=== PATIENT | male | born 1980 | race Caucasian/White ===

== ENCOUNTER 2021-05-28 17:48 | Emergency (ER) | payer OTHER ==
[2021-05-28] MEDS ORDERED: Proparacaine 0.5% Ophth Soln 15 ML Bottle EYELF ONE (18:47)
[2021-05-28] MEDS ORDERED: Fluorescein 1 MG Ophth Strip EYELF ONE (18:48)
--- NOTE | 2021-05-28 19:12 | EDM.PDOC ---
ED HPI GENERAL MEDICAL PROBLEM - General Chief Complaint: Eye Problems Stated Complaint: FB LEFT EYE Time Seen by Provider: 05/28/21 18:46 Source of Information: Reports: Patient History Limitations: Reports: No Limitations - History of Present Illness INITIAL COMMENTS - FREE TEXT/NARRATIVE: The patient presents with a FB in his left eye. He was at work and washing up and something went into his left eye. He can see it but he cannot get it out. He does not wear contacts and he does not wear glasses. He has no blurry vision. Onset: Sudden Duration: Minutes: Location: Reports: Other (left eye) Quality: Reports: Ache Severity: Mild Improves with: Reports: None Worsens with: Reports: None Associated Symptoms: Reports: No Other Symptoms Left Eye Pain Score (Numeric/FACES): 3 - Related Data Allergies Allergy/AdvReac Type Severity Reaction Status Date / Time No Known Allergies Allergy Verified 05/28/21 18:00 Home Meds: Home Meds Ciprofloxacin [Ciloxan 0.3% Ophth Soln] 1 drop EYELF Q4H #10 ml 05/28/21 [Rx] Past Medical History - Past Surgical History Musculoskeletal Surgical History: Reports: Other (See Below) Other Musculoskeletal Surgeries/Procedures:: back surgery Social & Family History - Tobacco Use Tobacco Use Status *Q: Current Some Day Tobacco User Years of Tobacco use: 10 Packs/Tins Daily: 0.1 - Recreational Drug Use Recreational Drug Use: No ED ROS GENERAL - Review of Systems Review Of Systems: See Below Constitutional: Reports: No Symptoms HEENT: Reports: Other (FB left eye) Respiratory: Reports: No Symptoms Cardiovascular: Reports: No Symptoms Endocrine: Reports: No Symptoms GI/Abdominal: Reports: No Symptoms : Reports: No Symptoms ED EXAM GENERAL W FULL EYE - Physical Exam Exam: See Below Exam Limited By: No Limitations General Appearance: Alert, No Apparent Distress Eye Exam: Bilateral Eye: EOMI, PERRL Eyelids: Left: Lid Everted for Exam, Bilateral: Normal Appearance Cornea Exam: Left: Foreign Body Extraocular Movements: Bilateral: Intact Respiratory/Chest: No Respiratory Distress ED EYE w/ Add Procedure - Eye Procedure Alcaine Drops Administered: Yes (Proparacaine) Eye FB Removal: Other (Eye spud) Eye Irrigated w/ Saline (ccs): 5 Course - Vital Signs Last Recorded V/S: Last Vital Signs Temp 97.8 F 05/28/21 17:58 Pulse 62 05/28/21 17:58 Resp 16 05/28/21 17:58 BP 125/84 05/28/21 17:58 Pulse Ox 96 05/28/21 17:58 - Orders/Labs/Meds Meds: Medications Discontinued Medications Generic Name Dose Route Start Last Admin Trade Name Sarita PRN Reason Stop Dose Admin Fluorescein Sodium 1 mg 05/28/21 18:48 05/28/21 18:55 Fluorescein 1 Mg Ophth Strip EYELF 05/28/21 18:49 1 mg ONETIME ONE Administration Proparacaine HCl 1 ml 05/28/21 18:47 05/28/21 18:55 Proparacaine 0.5% Ophth Soln 15 Ml Bottle EYELF 05/28/21 18:48 3 drop ONETIME ONE Administration - Re-Assessments/Exams Free Text/Narrative Re-Assessment/Exam: 05/28/21 19:09 I put some proparacaine in his left eye and I removed the FB with an eye spud. There is a slight rust ring. I do not feel that needs to be ground down. I will get him on some cipro drops. Departure - Departure Time of Disposition: 19:10 Disposition: Home, Self-Care 01 Condition: Good Clinical Impression: Corneal FB (foreign body) Qualifiers: Encounter type: initial encounter Laterality: left Qualified Code(s): T15.02XA - Foreign body in cornea, left eye, initial encounter - Discharge Information *PRESCRIPTION DRUG MONITORING PROGRAM REVIEWED*: Not Applicable *COPY OF PRESCRIPTION DRUG MONITORING REPORT IN PATIENT WANDA: Not Applicable Prescriptions: Ciprofloxacin [Ciloxan 0.3% Ophth Soln] 1 drop EYELF Q4H #10 ml Referrals: PCP,None [Primary Care Provider] - Additional Instructions: Use the cipro drops 1 drop in the left eye every 4 hours while awake for 1 week. Take tylenol or motrin as needed for pain. Follow up with an chemical applicator in town if you have any more issues. Please return if you are worse. Sepsis Event Note (ED) - Evaluation Sepsis Screening Result: No Definite Risk - Focused Exam Vital Signs: Vital Signs Temp Pulse Resp BP Pulse Ox 05/28/21 17:58 97.8 F 62 16 125/84 96
== END 2021-05-28 19:25 | disposition home or self-care (01) ==
LOC: JD.ED 17:48
DX: T15.02XA Foreign body in cornea, left eye, initial encounter (principal); Z72.0 Tobacco use
CPT/HCPCS: 65205; 65220; 99283; 99283-25

== ENCOUNTER 2021-05-29 09:15 | Emergency (ER) | payer OTHER ==
[2021-05-29] MEDS ORDERED: Diphtheria,Pertussis(Acell),Tetanus Vaccine 0.5 ML Syringe IM ONE (09:59)
[2021-05-29] MEDS ORDERED: Proparacaine 0.5% Ophth Soln 15 ML Bottle EYERT SCH (10:00)
[2021-05-29] MEDS ORDERED: Fluorescein 1 MG Ophth Strip EYERT ONE (10:23)
--- NOTE | 2021-05-29 10:26 | EDM.PDOC ---
ED HPI GENERAL MEDICAL PROBLEM - General Chief Complaint: ENT Problem Stated Complaint: FB IN LEFT EYE Time Seen by Provider: 05/29/21 10:15 - History of Present Illness INITIAL COMMENTS - FREE TEXT/NARRATIVE: 40-year-old male presents the emergency room for removal of rust ring and to have his tetanus booster. Patient was seen last evening had a foreign body that was metallic removed from his left eye. Apparently the [place] and [place] provider was insistent that the patient come back for rust ring removal and to have his tetanus updated. Patient is doing okay at this time no apparent visual problems. He was started on Cipro eyedrops. 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 PROJECT COACH: cipro drops evry 4 hours Right Eye Pain Score (Numeric/FACES): 5 - Related Data Allergies Allergy/AdvReac Type Severity Reaction Status Date / Time No Known Allergies Allergy Verified 05/28/21 18:00 Home Meds: Home Meds Ciprofloxacin [Ciloxan 0.3% Ophth Soln] 1 drop EYELF Q4H #10 ml 05/28/21 [Rx] Acetaminophen/HYDROcodone [[place] 325-5 MG] 1 - 2 tab PO Q6H PRN #10 tab 05/29/21 [Rx] Hydrocodone/Acetaminophen [Hydrocodone-Acetamin 5-325 mg] 1 - 2 tab PO Q6H PRN #10 tablet 05/29/21 [Rx] Past Medical History Cardiovascular History: Reports: None Respiratory History: Reports: None Gastrointestinal History: Reports: None Genitourinary History: Reports: None Musculoskeletal History: Reports: Back Pain, Chronic Neurological History: Reports: None Psychiatric History: Reports: None Endocrine/Metabolic History: Reports: None Hematologic History: Reports: None Immunologic History: Reports: None Oncologic (Cancer) History: Reports: None Dermatologic History: Reports: None - Infectious Disease History Infectious Disease History: Reports: Chicken Pox - Past Surgical History Head Surgeries/Procedures: Reports: None HEENT Surgical History: Reports: Other (See Below) Other HEENT Surgeries/Procedures: abrasion and welding burn to eyes Cardiovascular Surgical History: Reports: None Respiratory Surgical History: Reports: None GI Surgical History: Reports: None Musculoskeletal Surgical History: Reports: Other (See Below) Other Musculoskeletal Surgeries/Procedures:: back surgery Social & Family History - Family History Family Medical History: No Pertinent Family History - Tobacco Use Tobacco Use Status *Q: Current Every Day Tobacco User Years of Tobacco use: 15 Packs/Tins Daily: 0.5 - Caffeine Use Caffeine Use: Reports: Coffee - Recreational Drug Use Recreational Drug Use: No ED ROS GENERAL - Review of Systems Review Of Systems: See Below Constitutional: Reports: No Symptoms ED EXAM GENERAL W FULL EYE - Physical Exam Exam: See Below Exam Limited By: No Limitations General Appearance: Alert, No Apparent Distress Visual Acuity (R) 20/: 20 Visual Acuity (L) 20/: 25 With Correction: No Eyelids: Bilateral: Normal Appearance Conjunctiva & Sclera: Left: Discharge (Watery), Injected Cornea Exam: Left: Corneal Abrasion (7 o'clock position), Foreign Body (Not seen), Examined with Flourescein (Healing superficial abrasion), Other (Rust spot removed using a rotary bur) Extraocular Movements: Bilateral: Intact Anterior Chamber: Bilateral: Normal Appearance ED EYE w/ Add Procedure - Eye Procedure Progress: Using proparacaine the eye was adequately and emphasized fluorescein staining was done to examine prior to any procedures. The rust spot was identified. It had epithelialized over a little but was removed without difficulty using a rotary bur. Patient had his tetanus updated Course - Vital Signs Last Recorded V/S: Last Vital Signs Temp 36.2 C 05/29/21 09:28 Pulse 65 05/29/21 09:28 Resp 18 05/29/21 09:28 BP 129/94 H 05/29/21 09:28 Pulse Ox 98 05/29/21 09:28 - Orders/Labs/Meds Orders: Active Orders 24 hr Category Date Time Status Vaccines to be Administered [RC] PER UNIT ROUTINE Care 05/29/21 09:59 Active Proparacaine [Proparacaine 0.5% Ophth Soln] Med 05/29/21 10:00 Active 1 ml EYERT ASDIRECTED Medication Orders Proparacaine HCl (Proparacaine 0.5% Ophth Soln 15 Ml Bottle) 1 ml EYERT ASDIRECTED DRKAE Last Admin: 05/29/21 10:07 Dose: 3 drop Documented by: HILARY Meds: Medications Generic Name Dose Route Start Last Admin Trade Name Freq PRN Reason Stop Dose Admin Proparacaine HCl 1 ml 05/29/21 10:00 05/29/21 10:07 Proparacaine 0.5% Ophth Soln 15 Ml Bottle EYERT 3 drop ASDIRECTED DRAKE Administration Discontinued Medications Generic Name Dose Route Start Last Admin Trade Name Freq PRN Reason Stop Dose Admin Diphtheria/Tetanus/Acell Pertussis 0.5 ml 05/29/21 09:59 05/29/21 10:07 Diphtheria,Pertussis(Acell),Tetanus Vaccine 0.5 Ml Syringe IM 05/29/21 10:00 0.5 ml .ONCE ONE Administration Erythromycin 1 gm 05/29/21 10:43 05/29/21 10:45 Erythromycin Base 0.5% Ophth Oint 1 Gm Tube EYERT 05/29/21 10:44 1 cm ONETIME ONE Administration Fluorescein Sodium 1 mg 05/29/21 10:23 05/29/21 10:23 Fluorescein 1 Mg Ophth Strip EYERT 05/29/21 10:24 1 mg ONETIME ONE Administration Departure - Departure Time of Disposition: 10:51 Disposition: Home, Self-Care 01 Clinical Impression: Corneal rust ring of left eye - Discharge Information Prescriptions: Hydrocodone/Acetaminophen [Hydrocodone-Acetamin 5-325 mg] 1 - 2 tab PO Q6H PRN #10 tablet PRN Reason: Pain Acetaminophen/HYDROcodone [[place] 325-5 MG] 1 - 2 tab PO Q6H PRN #10 tab PRN Reason: Pain Referrals: PCP,None [Primary Care Provider] - Forms: ED Department Discharge Additional Instructions: Return to the emergency room with any questions problems or worsening symptoms. Follow-up with your eye doctor tomorrow for recheck. Use the erythromycin ointment approximately 1/2 inch behind the lower eyelid every couple hours while awake. Continue using your Cipro drops as directed Use the pain pills as needed 1 or 2 every 6 hours you should not need them more than 24 hours. Allow 12 hours after using these medications before driving or returning to work. Sepsis Event Note (ED) - Evaluation Sepsis Screening Result: No Definite Risk - Focused Exam Vital Signs: Vital Signs Temp Pulse Resp BP Pulse Ox 05/29/21 09:28 36.2 C 65 18 129/94 H 98 - My Orders Last 24 Hours: My Active Orders 05/29/21 09:59 Vaccines to be Administered [RC] PER UNIT ROUTINE 05/29/21 10:00 Proparacaine [Proparacaine 0.5% Ophth Soln] 1 ml EYERT ASDIRECTED - Assessment/Plan Last 24 Hours: My Active Orders 05/29/21 09:59 Vaccines to be Administered [RC] PER UNIT ROUTINE 05/29/21 10:00 Proparacaine [Proparacaine 0.5% Ophth Soln] 1 ml EYERT ASDIRECTED
[2021-05-29] MEDS ORDERED: Erythromycin Base 0.5% Ophth Oint 1 GM Tube EYERT ONE (10:43)
== END 2021-05-29 11:24 | disposition home or self-care (01) ==
LOC: JD.ED 09:15
DX: T15.02XA Foreign body in cornea, left eye, initial encounter (principal); Z72.0 Tobacco use; Z23 Encounter for immunization
CPT/HCPCS: 65220; 90471; 90715; 99283; A9270